=== PATIENT | male | born 1980 | race Caucasian/White ===

== ENCOUNTER 2020-12-27 11:47 | Emergency (ER) | payer BC ==
[~2020-12-27] VITALS: Ht 180.3 cm; Wt 86.4 kg
[2020-12-27 11:59] VITALS: BP 145/91
[2020-12-27] MEDS ORDERED: ALBU8HFA PO (12:01)
[2020-12-27] MEDS ORDERED: PRED10TA23 PO (12:01)
== END 2020-12-27 12:19 | disposition home or self-care (01) ==
LOC: ER 11:48
DX: J45.901 Unspecified asthma with (acute) exacerbation (principal); Z87.19 Personal history of other diseases of the digestive system; Z79.899 Other long term (current) drug therapy
CPT/HCPCS: 99283